=== PATIENT | female | born 1965 | race Caucasian/White ===

== ENCOUNTER 2020-11-10 21:35 | Emergency (ER) | payer OTHER ==
[2020-11-10] MEDS ORDERED: predniSONE 20 MG TAB ONE (22:07)
== END 2020-11-10 22:10 | disposition home or self-care (01) ==
LOC: BURERS 21:35
DX: L30.9 Dermatitis, unspecified (principal); G24.9 Dystonia, unspecified; G35 Multiple sclerosis; J44.9 Chronic obstructive pulmonary disease, unspecified; I10 Essential (primary) hypertension
CPT/HCPCS: 99282; J7512

== ENCOUNTER 2021-02-26 22:56 | Emergency (ER) | payer OTHER | END 2021-02-26 23:49 | disposition home or self-care (01) | LOC: BURERS 22:56 | DX: S20.219A Contusion of unspecified front wall of thorax, initial encounter (principal); I10 Essential (primary) hypertension; J44.9 Chronic obstructive pulmonary disease, unspecified; X58.XXXA Exposure to other specified factors, initial encounter | CPT/HCPCS: 71045; 71120; 93005 ==

== ENCOUNTER 2021-08-05 13:37 | Emergency (ER) | payer OTHER | END 2021-08-05 14:07 | disposition home or self-care (01) | LOC: BURERS 13:37 | DX: S61.411D Laceration without foreign body of right hand, subsequent encounter (principal); J44.9 Chronic obstructive pulmonary disease, unspecified; F17.210 Nicotine dependence, cigarettes, uncomplicated; I10 Essential (primary) hypertension ==

== ENCOUNTER 2021-10-03 13:22 | Emergency (ER) | payer OTHER | END 2021-10-03 14:24 | disposition home or self-care (01) | LOC: BURERS 13:22 | DX: B86 Scabies (principal); R21 Rash and other nonspecific skin eruption; I10 Essential (primary) hypertension; J44.9 Chronic obstructive pulmonary disease, unspecified; F17.210 Nicotine dependence, cigarettes, uncomplicated | CPT/HCPCS: 99282 ==